=== PATIENT | male | born 1965 | race Caucasian/White ===

== ENCOUNTER 2020-12-29 11:30 | Inpatient (IN) ==
[2020-12-29] MEDS ORDERED: CEFEPIME 2,000 MG/20 ML VIAL IV STA (12:41)
[2020-12-29] MEDS ORDERED: SODIUM CHLORIDE 0.9% 1000ML 1,000 ML IV SCH ×2 (12:45→13:42)
[2020-12-29] MEDS ORDERED: LACTATED RINGER'S 1,000 ML IV SCH (12:45)
--- NOTE | 2020-12-29 12:46 | Emergency Department Note ---
Impression & Plan Pneumonia due to 2019-nCoV, URSZULA (acute kidney injury), Respiratory failure with hypoxia ED Provider Note NAME: KRYSTIN SAMUEL AGE: 55 SEX: M : 1965 ARRIVES VIA: Ambulance INFORMANT: Patient ED PROVIDER(S): Anant Alatorre DO CHIEF COMPLAINT: weak HPI: Patient is a 55-year-old male that presents to the ER for weakness. Symptoms started about 2 weeks ago with diarrhea. And then progressed to a cough congestion shortness of breath. She has had chest pain in the middle of his chest going through to the back which is worse with palpation for the past week. He denies any belly pain nausea or vomiting. He admits to persistent diarrhea. No dysuria urgency or frequency. He tested positive for Covid within the past week. No other exacerbating or remitting factors. Does have a history of diabetes. Had 1 fever yesterday of 101. ROS: See above HPI for pertinent positives & negatives. A total of 10 systems reviewed and were otherwise negative. PAST MEDICAL HISTORY:See Below PAST SURGICAL HISTORY:See Below FAMILY HISTORY:See Below SOCIAL HISTORY:See Below HOME MEDICATIONS:See Below ALLERGIES:See Below VITALS:See Below PHYSICAL EXAMINATION: GENERAL: Sitting up in bed, alert, disheveled, ill-appearing EYE EXAM: normal conjunctiva. OROPHARYNX: no exudate, no erythema, lips, buccal mucosa, and tongue normal and mucous membranes are moist NECK: supple, no nuchal rigidity, no adenopathy, non-tender LUNGS: Diminished bilaterally. Normal chest wall mechanics HEART: no murmurs, S1 normal and S2 normal ABDOMEN: abdomen soft, non-tender, normo-active bowel sounds, no masses, no rebound or guarding. BACK: Back is symmetrical on inspection and there is no deformity, no midline tenderness, no CVA tenderness. SKIN: no rashes and no bruising UPPER EXTREMITIES: upper extremities are grossly normal. LOWER EXTREMITIES: No pitting edema. NEURO EXAM: Normal sensorium, cranial nerves II-XII grossly intact, normal speech, no gross weakness of arms, no gross weakness of legs. MEDICAL DECISION MAKING: Patient is a 55-year-old male who presents ER for above-stated complaint. IV was established blood was obtained. Labs showed no significant leukocytosis or anemia. INR unremarkable. D-dimer slightly elevated at 700. VBG with a pH of 7.28 and CO2 of 65. BMP was fairly unremarkable with the exception of URSZULA. Troponin was normal. Pro-Fred was normal. UA was clean. Covid was positive. Chest x-ray with an interstitial pneumonitis consistent with Covid. Patient was given 3 L IV normal saline. [place] significantly better and blood pressures improved from the 70s to low 100s. Creatinine had significantly worsened from previous of .8 to 2. Unable to perform CT angio for the positive D-dimer due to the URSZULA Triage Nursing notes reviewed. Limited review of prior medical records performed Vital Signs: reviewed and remarkable for Hypotension and hypoxia Differential diagnosis: Infection, dehydration, metabolic abnormality, hypo/hyperglycemia, electrolyte disturbance, anemia, hypoxia, cardiac sources, intracerebral event, toxicologic, neurologic, as well as other pathologies. ER treatment provided: See below Diagnostics interpreted by me: ECG: Sinus rhythm rate of 71 Normal axis No PVCs T wave inversion V1 V2 QTC 425 Cardiac Monitoring: An order was placed for continuous cardiac monitoring. The monitor shows a rate of 78 with sinus rhythm. Laboratory studies: As stated above and show below. Imaging studies: Chest x-ray as discussed above Consultation(s): Discussed with the hospitalist for further evaluation Procedures: none Critical Care: I have personally spent 40 minutes of critical care time in the direct management of this patient. This includes bedside care, interpretation of diagnostic studies, and testing, discussion with consultants, patient, and family members, and other required patient management activities. This 40 minutes is in excess of all separately billable procedures. Past Med/Surg History Medical History (Updated 12/29/20 @ 18:47 by Anant Alatorre DO) Anxiety Bipolar disorder pt unsure of this dx. one physician confirmed and another denied dx. Carpal tunnel syndrome on both sides Degenerative disc disease Depression Diabetes mellitus, type 2 IDDM GERD (gastroesophageal reflux disease) HTN (hypertension) Osteoarthritis Sinusitis Sleep apnea CPAP Surgical History History of cardiac cath 10 YEARS AGO - [facility] - NO STENTS/ANGIOPLASTY History of carpal tunnel repair bilateral hands History of cholecystectomy History of colonoscopy History of esophagogastroduodenoscopy (EGD) History of repair of rotator cuff LEFT History of sinus surgery History of tooth extraction Family History Brother Family history of diabetes mellitus Sister Family history of diabetes mellitus Grandfather (Maternal) Family history of diabetes mellitus Social History Smoking Status: Never smoker Second Hand Exposure: No; Do You Dip or Chew Tobacco: Yes; Tobacco Cessation Education Requested by Patient: No Hx Alcohol Use: Yes Alcohol type: beer Hx Substance Use: No Preferred Language: Japanese Communication Ability: Effective Zoogler Required: No Beliefs That Will Affect Care: None Current Living Situation: Family Current Living Situation Comment: LIVES W/ BROTHER Feels Safe at Home: Yes Assistive Devices: CPAP, Denture - Upper and Denture - Lower Allergies Allergies Allergy/AdvReac Type Severity Reaction Status Date / Time No Known Allergies Allergy Verified 09/11/19 08:27 Home Meds Home Medications Medication Instructions Recorded Confirmed Basaglar KwikPen U-100 Insulin 40 unit SUBCUT BID 08/15/19 12/29/20 aripiprazole [Abilify] 5 mg PO QAM 08/15/19 12/29/20 atorvastatin [Lipitor] 40 mg PO QPM 08/15/19 12/29/20 clonazepam [Klonopin] 0.5 mg PO BID 08/15/19 12/29/20 escitalopram oxalate [Lexapro] 10 mg PO QAM 08/15/19 12/29/20 insulin aspart U-100 [Novolog 1 sliding scale dose SUBCUT 08/15/19 12/29/20 U-100 Insulin aspart] USEASDIRECTD losartan 100 mg PO QAM 08/15/19 12/29/20 metformin 500 mg PO BID 08/15/19 12/29/20 metoprolol succinate 50 mg PO QAM 08/15/19 12/29/20 omeprazole 40 mg PO QAM 08/15/19 12/29/20 temazepam 30 mg PO HS 12/29/20 12/29/20 Results & Data (ED) Vital Signs Vital Signs - 24 hr 12/29/20 11:41 12/29/20 11:43 12/29/20 11:45 Temperature Temperature Source Pulse Rate 70 72 71 Pulse Rate from SpO2 Sensor 70 72 70 Pulse Rhythm Pulse Strength Respiratory Rate 19 17 17 Respiratory Effort / Characteristics Respiratory Depth Respiratory Pattern Blood Pressure 90/49 L 88/47 L 78/48 L Blood Pressure Mean 62 60 58 Blood Pressure Position Pulse Oximetry 96 96 95 Oxygen Delivery Method Oxygen Flow Rate Sepsis Recent Fever Within 48 Hours Sepsis New/Unexplained Change in Mental Status Sepsis Action Taken by Nursing 12/29/20 11:52 12/29/20 12:00 12/29/20 12:15 Temperature 37.1 C Temperature Source Oral Pulse Rate 77 74 68 Pulse Rate from SpO2 Sensor 74 69 Pulse Rhythm Regular Pulse Strength Normal Respiratory Rate 16 18 17 Respiratory Effort / Characteristics Non-Labored Spontaneous Respiratory Depth Normal Respiratory Pattern Regular Blood Pressure 90/49 L 84/53 L 90/49 L Blood Pressure Mean 62 63 62 Blood Pressure Position Sitting Pulse Oximetry 96 95 92 Oxygen Delivery Method Nasal Cannula Oxygen Flow Rate 4 Sepsis Recent Fever Within 48 Hours Yes Sepsis New/Unexplained Change in Mental Status No Sepsis Action Taken by Nursing No Action Required 12/29/20 12:30 12/29/20 12:40 12/29/20 12:41 Temperature Temperature Source Pulse Rate 71 76 Pulse Rate from SpO2 Sensor 71 77 Pulse Rhythm Pulse Strength Respiratory Rate 15 31 H Respiratory Effort / Characteristics Non-Labored Spontaneous Respiratory Depth Respiratory Pattern Blood Pressure 76/48 L 96/53 L Blood Pressure Mean 57 67 Blood Pressure Position Pulse Oximetry 89 L 98 Oxygen Delivery Method Nasal Cannula Oxygen Flow Rate 4 Sepsis Recent Fever Within 48 Hours Sepsis New/Unexplained Change in Mental Status Sepsis Action Taken by Nursing 12/29/20 12:45 12/29/20 13:00 12/29/20 13:15 Temperature Temperature Source Pulse Rate 76 71 72 Pulse Rate from SpO2 Sensor 77 70 71 Pulse Rhythm Pulse Strength Respiratory Rate 14 17 16 Respiratory Effort / Characteristics Non-Labored Spontaneous Respiratory Depth Respiratory Pattern Blood Pressure 117/77 111/56 L 95/57 L Blood Pressure Mean 90 74 69 Blood Pressure Position Pulse Oximetry 97 100 98 Oxygen Delivery Method Nasal Cannula Oxygen Flow Rate Sepsis Recent Fever Within 48 Hours Sepsis New/Unexplained Change in Mental Status Sepsis Action Taken by Nursing 12/29/20 13:30 12/29/20 13:45 12/29/20 13:46 Temperature Temperature Source Pulse Rate 68 76 75 Pulse Rate from SpO2 Sensor 68 76 75 Pulse Rhythm Pulse Strength Respiratory Rate 14 26 H 20 Respiratory Effort / Characteristics Non-Labored Spontaneous Respiratory Depth Respiratory Pattern Blood Pressure 108/59 L 111/59 L Blood Pressure Mean 75 76 Blood Pressure Position Pulse Oximetry 97 100 100 Oxygen Delivery Method Nasal Cannula Oxygen Flow Rate 4 Sepsis Recent Fever Within 48 Hours Sepsis New/Unexplained Change in Mental Status Sepsis Action Taken by Nursing 12/29/20 14:00 12/29/20 14:16 12/29/20 14:30 Temperature Temperature Source Pulse Rate 71 Pulse Rate from SpO2 Sensor 72 69 Pulse Rhythm Pulse Strength Respiratory Rate 16 21 Respiratory Effort / Characteristics Non-Labored Spontaneous Non-Labored Spontaneous Respiratory Depth Respiratory Pattern Blood Pressure 112/62 98/56 L Blood Pressure Mean 78 70 Blood Pressure Position Pulse Oximetry 98 97 Oxygen Delivery Method Oxygen Flow Rate Sepsis Recent Fever Within 48 Hours Sepsis New/Unexplained Change in Mental Status Sepsis Action Taken by Nursing 12/29/20 14:31 12/29/20 14:46 12/29/20 15:00 Temperature Temperature Source Pulse Rate 77 74 Pulse Rate from SpO2 Sensor 75 74 Pulse Rhythm Pulse Strength Respiratory Rate 25 H 16 24 Respiratory Effort / Characteristics Non-Labored Spontaneous Respiratory Depth Respiratory Pattern Blood Pressure 100/53 L 114/65 122/68 Blood Pressure Mean 68 81 86 Blood Pressure Position Pulse Oximetry 100 99 Oxygen Delivery Method Oxygen Flow Rate Sepsis Recent Fever Within 48 Hours Sepsis New/Unexplained Change in Mental Status Sepsis Action Taken by Nursing 12/29/20 15:15 12/29/20 15:30 12/29/20 15:45 Temperature Temperature Source Pulse Rate 74 70 72 Pulse Rate from SpO2 Sensor 74 68 72 Pulse Rhythm Pulse Strength Respiratory Rate 21 19 20 Respiratory Effort / Characteristics Non-Labored Spontaneous Respiratory Depth Respiratory Pattern Blood Pressure 123/77 118/71 110/67 Blood Pressure Mean 92 86 81 Blood Pressure Position Pulse Oximetry 97 93 99 Oxygen Delivery Method Oxygen Flow Rate Sepsis Recent Fever Within 48 Hours Sepsis New/Unexplained Change in Mental Status Sepsis Action Taken by Nursing Laboratory Data Result diagrams: 12/29/20 11:51 12/29/20 17:38 Lab Results 12/29/20 12/29/20 12/29/20 Range/Units 11:51 11:51 11:51 WBC 5.84 (4.8-10.8) K/uL RBC 5.31 (4.7-6.1) M/uL Hgb 13.7 L (14.0-18.0) g/dL Hct 41.9 L (42-52) % MCV 78.9 L (80-100) fL MCH 25.8 (25-34) pg MCHC 32.7 (32-36) g/dL RDW Std Deviation 47.5 H (36.4-46.3) fL RDW Coeff of Rich 16.4 H (11.5-14.5) % Plt Count 128 L (130-400) K/uL MPV 10.1 (7.4-10.4) fL Immature Gran % (Auto) 0.3 % Neut % (Auto) 67.6 % Lymph % (Auto) 22.3 % [place] % (Auto) 9.8 % Eos % (Auto) 0.0 % Baso % (Auto) 0.0 % Neut # (Auto) 3.95 (1.4-6.5) K/uL Lymph # (Auto) 1.30 (1.2-3.4) K/uL [place] # (Auto) 0.57 (0.11-0.59) K/uL Eos # (Auto) 0.00 (0-0.5) K/uL Baso # (Auto) 0.00 (0-0.2) K/uL Immature Gran # (Auto) 0.02 (0.00-0.02) K/uL PT 10.9 (9.0-12.0) Seconds INR 1.1 (0.9-1.1) APTT 27.6 (21.0-31.0) Seconds PTT Ratio 1.0 D-Dimer 770 H* (0-500) ug/L FEU VBG pH (7.36-7.41) VBG pCO2 (38-50) mmHg VBG pO2 mmHg VBG HCO3 mmol/L VBG O2 Saturation % VBG Base Excess mEq/L Barometric Pressure mm/Hg Sodium 134 L (136-145) mmol/L Potassium 4.0 (3.5-5.1) mmol/L Chloride 103 (98-107) mmol/L Carbon Dioxide 25 (21-32) mmol/L Anion Gap 6.0 (3-11) BUN 20 H (7-18) mg/dl Creatinine 2.03 H (0.6-1.4) mg/dl Est Cr Clr Drug Dosing 57.1 ml/min Est GFR ( Amer) 41.0 Est GFR (Non-Af Amer) 35.3 BUN/Creatinine Ratio 10.0 (10-20) Glucose 108 H (70-99) mg/dl POC Glucose (70-99) mg/dl Lactate (0.4-2.0) mmol/L Calcium 8.4 L (8.5-10.1) mg/dl Magnesium 2.0 (1.8-2.4) mg/dl Total Bilirubin 1.2 H (0.2-1) mg/dl AST 42 H (15-37) U/L ALT 41 (12-78) U/L Alkaline Phosphatase 69 (45-117) U/L Troponin I < 0.015 (0-0.045) ng/ml Total Protein 7.4 (6.4-8.2) gm/dl Albumin 3.2 L (3.4-5.0) gm/dl Globulin 4.2 H (2.5-4.0) gm/dl Albumin/Globulin Ratio 0.8 L (0.9-2) Procalcitonin (0-0.5) ng/ml COVID-19 Eval Order SARS-CoV-2 (PCR) (Negative) Influenza Type A (PCR) (Neg) Influenza Type B (PCR) (Neg) RSV (RT-PCR) (Neg) 12/29/20 12/29/20 12/29/20 Range/Units 11:51 11:56 12:45 WBC (4.8-10.8) K/uL RBC (4.7-6.1) M/uL Hgb (14.0-18.0) g/dL Hct (42-52) % MCV (80-100) fL MCH (25-34) pg MCHC (32-36) g/dL RDW Std Deviation (36.4-46.3) fL RDW Coeff of Rich (11.5-14.5) % Plt Count (130-400) K/uL MPV (7.4-10.4) fL Immature Gran % (Auto) % Neut % (Auto) % Lymph % (Auto) % [place] % (Auto) % Eos % (Auto) % Baso % (Auto) % Neut # (Auto) (1.4-6.5) K/uL Lymph # (Auto) (1.2-3.4) K/uL [place] # (Auto) (0.11-0.59) K/uL Eos # (Auto) (0-0.5) K/uL Baso # (Auto) (0-0.2) K/uL Immature Gran # (Auto) (0.00-0.02) K/uL PT (9.0-12.0) Seconds INR (0.9-1.1) APTT (21.0-31.0) Seconds PTT Ratio D-Dimer (0-500) ug/L FEU VBG pH (7.36-7.41) VBG pCO2 (38-50) mmHg VBG pO2 mmHg VBG HCO3 mmol/L VBG O2 Saturation % VBG Base Excess mEq/L Barometric Pressure mm/Hg Sodium (136-145) mmol/L Potassium (3.5-5.1) mmol/L Chloride (98-107) mmol/L Carbon Dioxide (21-32) mmol/L Anion Gap (3-11) BUN (7-18) mg/dl Creatinine (0.6-1.4) mg/dl Est Cr Clr Drug Dosing ml/min Est GFR ( Amer) Est GFR (Non-Af Amer) BUN/Creatinine Ratio (10-20) Glucose (70-99) mg/dl POC Glucose 124 H (70-99) mg/dl Lactate (0.4-2.0) mmol/L Calcium (8.5-10.1) mg/dl Magnesium (1.8-2.4) mg/dl Total Bilirubin (0.2-1) mg/dl AST (15-37) U/L ALT (12-78) U/L Alkaline Phosphatase (45-117) U/L Troponin I (0-0.045) ng/ml Total Protein (6.4-8.2) gm/dl Albumin (3.4-5.0) gm/dl Globulin (2.5-4.0) gm/dl Albumin/Globulin Ratio (0.9-2) Procalcitonin 0.14 (0-0.5) ng/ml COVID-19 Eval Order CovFluRsv at [facility] SARS-CoV-2 (PCR) (Negative) Influenza Type A (PCR) (Neg) Influenza Type B (PCR) (Neg) RSV (RT-PCR) (Neg) 12/29/20 12/29/20 12/29/20 Range/Units 12:45 13:58 13:58 WBC (4.8-10.8) K/uL RBC (4.7-6.1) M/uL Hgb (14.0-18.0) g/dL Hct (42-52) % MCV (80-100) fL MCH (25-34) pg MCHC (32-36) g/dL RDW Std Deviation (36.4-46.3) fL RDW Coeff of Rich (11.5-14.5) % Plt Count (130-400) K/uL MPV (7.4-10.4) fL Immature Gran % (Auto) % Neut % (Auto) % Lymph % (Auto) % [place] % (Auto) % Eos % (Auto) % Baso % (Auto) % Neut # (Auto) (1.4-6.5) K/uL Lymph # (Auto) (1.2-3.4) K/uL [place] # (Auto) (0.11-0.59) K/uL Eos # (Auto) (0-0.5) K/uL Baso # (Auto) (0-0.2) K/uL Immature Gran # (Auto) (0.00-0.02) K/uL PT (9.0-12.0) Seconds INR (0.9-1.1) APTT (21.0-31.0) Seconds PTT Ratio D-Dimer (0-500) ug/L FEU VBG pH 7.25 L (7.36-7.41) VBG pCO2 67 H (38-50) mmHg VBG pO2 23 mmHg VBG HCO3 29 mmol/L VBG O2 Saturation < 60.0 % VBG Base Excess 0.3 mEq/L Barometric Pressure 727.0 mm/Hg Sodium (136-145) mmol/L Potassium (3.5-5.1) mmol/L Chloride (98-107) mmol/L Carbon Dioxide (21-32) mmol/L Anion Gap (3-11) BUN (7-18) mg/dl Creatinine (0.6-1.4) mg/dl Est Cr Clr Drug Dosing ml/min Est GFR ( Amer) Est GFR (Non-Af Amer) BUN/Creatinine Ratio (10-20) Glucose (70-99) mg/dl POC Glucose (70-99) mg/dl Lactate 1.0 (0.4-2.0) mmol/L Calcium (8.5-10.1) mg/dl Magnesium (1.8-2.4) mg/dl Total Bilirubin (0.2-1) mg/dl AST (15-37) U/L ALT (12-78) U/L Alkaline Phosphatase (45-117) U/L Troponin I (0-0.045) ng/ml Total Protein (6.4-8.2) gm/dl Albumin (3.4-5.0) gm/dl Globulin (2.5-4.0) gm/dl Albumin/Globulin Ratio (0.9-2) Procalcitonin (0-0.5) ng/ml COVID-19 Eval Order SARS-CoV-2 (PCR) POSITIVE A* (Negative) Influenza Type A (PCR) Negative (Neg) Influenza Type B (PCR) Negative (Neg) RSV (RT-PCR) Negative (Neg) Administered Medications Enoxaparin Sodium (Enoxaparin 80 Mg/0.8 Ml Syr) 70 mg SQ Q12H LACIE Stop: 01/28/21 17:59 Last Admin: 12/29/20 18:07 Dose: 70 mg Documented by: [id number] Remdesivir 200 mg/ Sodium (Chloride) 250 mls @ 125 mls/hr IV NOW ONE; Protocol Stop: 12/29/20 20:29 Last Admin: 12/29/20 18:07 Dose: 125 mls/hr Documented by: [id number] Insulin Aspart (Insulin Aspart 100 Units/Ml 3 Ml Pen) 0 units SC ACHS LACIE Stop: 01/28/21 17:17 Last Admin: 12/29/20 18:00 Dose: 4 units Documented by: [id number] Cosigned by: [id number] Discontinued Medications Azithromycin (Azithromycin 250 Mg Tab) 500 mg PO NOW ONE Stop: 12/29/20 16:49 Last Admin: 12/29/20 18:06 Dose: 500 mg Documented by: [id number] Dexamethasone Sodium Phosphate (DexamethasonePf 10 Mg/Ml Vial) 10 mg IV NOW ONE Stop: 12/29/20 14:29 Last Admin: 12/29/20 16:04 Dose: 10 mg Documented by: [id number] Sodium Chloride (Nss 1000ml) 1,000 mls @ 999 mls/hr IV .Q1H1M LACIE Stop: 12/29/20 13:42 Last Infusion: 12/29/20 14:32 Dose: 0 mls/hr Documented by: [id number] Admin: 12/29/20 12:56 Dose: 999 mls/hr Documented by: [id number] Sodium Chloride (Nss 1000ml) 1,000 mls @ 999 mls/hr IV .Q1H1M LACIE Stop: 12/29/20 14:41 Last Infusion: 12/29/20 14:31 Dose: 0 mls/hr Documented by: [id number] Admin: 12/29/20 12:56 Dose: 999 mls/hr Documented by: [id number] Lactated Ringer's (Lr) 1,000 mls @ 999 mls/hr IV .Q1H1M LACIE Stop: 12/29/20 13:45 Last Infusion: 12/29/20 15:17 Dose: 0 mls/hr Documented by: [id number] Admin: 12/29/20 14:00 Dose: 999 mls/hr Documented by: [id number] Cefepime HCl (Maxipime) 2,000 mg in 20 mls @ 5 mls/min IV NOW STA; Protocol Stop: 12/29/20 12:44 Last Admin: 12/29/20 14:00 Dose: 5 mls/min Documented by: [id number] Imaging Data Radiologist's Impression: Chest X-Ray 12/29/20 12:41 XR chest 1V portable HISTORY: 55 years-old Male SEPSIS acute sepsis COMPARISON: None TECHNIQUE: Portable AP view of the chest FINDINGS: Cardiac silhouette is enlarged. Pulmonary vascular congestion. Interstitial coarsening. No pneumothorax, large pleural effusion or lobar airspace consolidation. Bones appear grossly intact. IMPRESSION: Cardiomegaly with pulmonary vascular congestion and interstitial o pacities suggestive of pulmonary edema versus interstitial pneumonitis. ACT 112: Negative or not required by law. The above report was generated using voice recognition software. It may contain grammatical, syntax or spelling errors. Electronically signed by: Conor Neal M.D. 12/29/2020 2:08 PM Discharge Plan Visit Data Chief Complaint: Illness ED Provider: Anant Alatorre Discharge Problem: Pneumonia due to 2019-nCoV, URSZULA (acute kidney injury), Respiratory failure with hypoxia Patient Disposition: Admitted As Inpatient Discharge Instructions Interventions: ED Discharge Assessment Last Done: 12/29/20 16:55 Discharge Problem: Respiratory failure with hypoxia Qualifiers: Chronicity: acute Qualified Code(s): J96.01 - Acute respiratory failure with hypoxia
[2020-12-29 12:59] LABS: Hematocrit (blood only) 41.9 % (42-52); Hemoglobin 13.7 g/dL (14.0-18.0); Immature Granulocytes # (auto) 0.02 K/uL (0.00-0.02); Immature Granulocytes % (auto) 0.3 %; Lymphocytes % (auto) 22.3 %; Mean Corpuscular Hemoglobin 25.8 pg (25-34); Mean Corpuscular Hgb Conc 32.7 g/dL (32-36); Mean Corpuscular Volume 78.9 fL (80-100); Mean Platelet Volume 10.1 fL (7.4-10.4); Monocytes # (auto) 0.57 K/uL (0.11-0.59); Monocytes % (auto) 9.8 %; Neutrophils # (auto) 3.95 K/uL (1.4-6.5); Neutrophils % (auto) 67.6 %; Platelet Count 128 K/uL (130-400); RDW Coefficient of Variation 16.4 % (11.5-14.5); RDW Standard Deviation 47.5 fL (36.4-46.3); Red Blood Count 5.31 M/uL (4.7-6.1); White Blood Count 5.84 K/uL (4.8-10.8)
[2020-12-29 13:06] LABS: Alanine Aminotransferase 41 U/L (12-78); Albumin Level 3.2 gm/dl (3.4-5.0); Aspartate Aminotransferase 42 U/L (15-37); Blood Urea Nitrogen 20 mg/dl (7-18); Calcium 8.4 mg/dl (8.5-10.1); Carbon Dioxide 25 mmol/L (21-32); Chloride 103 mmol/L (98-107); Creatinine Clr Calc Pharmacy 57.1 ml/min; Est GFR (Non-African American) 35.3; Glucose 108 mg/dl (70-99); Sodium 134 mmol/L (136-145)
[2020-12-29 13:10] LABS: INR 1.1 (0.9-1.1); Partial Thromboplastin Time 27.6 Seconds (21.0-31.0); Prothrombin Time 10.9 Seconds (9.0-12.0)
[2020-12-29 13:11] LABS: Albumin Globulin Ratio 0.8 (0.9-2); Alkaline Phosphatase 69 U/L (45-117); Bilirubin,Total 1.2 mg/dl (0.2-1); Globulin 4.2 gm/dl (2.5-4.0); Total Protein 7.4 gm/dl (6.4-8.2); Troponin I < 0.015 ng/ml (0-0.045)
[2020-12-29 13:20] LABS: D Dimer 770 ug/L FEU (0-500)
--- NOTE | 2020-12-29 14:09 | XRay Report ---
XR chest 1V portable HISTORY: 55 years-old Male SEPSIS acute sepsis COMPARISON: None TECHNIQUE: Portable AP view of the chest FINDINGS: Cardiac silhouette is enlarged. Pulmonary vascular congestion. Interstitial coarsening. No pneumothor ax, large pleural effusion or lobar airspace consolidation. Bones appear grossly intact. IMPRESSION: Cardiomegaly with pulmonary vascular congestion and interstitial opacities suggestive of pulmonary edema versus interstitial pneumonitis. ACT 112: Negative or not required by law. The above report was generated using voice recognition software. It may contain grammatical, syntax o r spelling errors. Electronically signed by: Conor Neal M.D. 12/29/2020 2:08 PM
[2020-12-29 14:15] LABS: Influenza A virus by PCR Negative (Neg); Influenza B virus by PCR Negative (Neg); RSV by PCR Negative (Neg)
[2020-12-29 14:20] LABS: SARS CoV2 RNA(COVID-19) InHosp POSITIVE (Negative)
[2020-12-29 14:22] LABS: Base Excess VBG 0.3 mEq/L; HCO3 VBG 29 mmol/L; PCO2 VBG 67 mmHg (38-50); PO2 VBG 23 mmHg; pH VBG 7.25 (7.36-7.41)
[2020-12-29 14:26] LABS: Oxygen Saturation VBG < 60.0 %
[2020-12-29] MEDS ORDERED: dexAMETHasone**PF** 10 MG/ML VIAL IV ONE (14:28)
--- NOTE | 2020-12-29 16:01 | History & Physical Report ---
Date of Service December 29, 2020 Assessment & Plan (1) COVID-19: COVID 19 pneumonia- hypoxic requiring supplemental oxygen - Day 6 of illness - Remdisivir as renal function permits- trend liver enzymes - Decadron 6 mg IV x5 days - Self proning and side rotation q2 hours for 20 min minimum to 2 hour max - Lovenox 0.5mg/kg VTE as renal function permits - Check BMP now, follow renal function, avoid further crystalloids as possible - Can orally rehydrate - O2 needs currently decreased to 2LNC- titrate as needed to keep SPO2 >90%, NC/HFNC/NIPPV - Patient does not wish to be intubated - CRP/ESR/Fibrinogen/PCT tomorrow - PCT 0.14- Azithromycin (2) URSZULA (acute kidney injury): Last baseline CARTOGRAPHIC AIDE from 2019 0.82 - FENA 1.3% - Received 3 Liters in EMD- did void - Follow PVR with bladder scan - Negative protein negative blood - Will hold ARB for today- if improves can restart - Will need to closely follow Enoxaparin dosing and Remdisivir (3) Anxiety: ? Bi-polar in history which patient is not sure of - He does note anxiety- had one episode in 2016 here for depression and mental health evaluation - Continue Abilify 5 PO qam, Klonopin 0.5mg PO BID, Lexapro 10 mg PO Qam - Hold Temazepam with renal as well as him feeling lethargic this morning- if improves on recheck consider half dose of his 30 mg. (4) Respiratory acidosis: VBG on admission with Paco2 67; PH 7.25, HCO3 29 - Reassess- - patient is awake and conversant with normalized respiratory rate and effort from arrival (5) Diabetes mellitus, type 2: Glargine Basaglar 40 units subq BID - SSI aspart - HGBa1C in morning (6) HTN (hypertension): Hold ARB as above - Goal <140 (7) Obesity: 42.7 No acute needs (8) Sleep apnea: ZAFAR- on CPAP at home, patient is unsure of settings- believes he is at 10 - titrate to comfort and tolerance (9) Impingement syndrome of right shoulder: Managed with orthopaedics and steroid injection - tylenol for now - can do heat/ice therapy if desired (10) Anemia: For his microcytic anemia, check iron studies-if iron is low, would need upper and lower endoscopies as an outpatient (11) DVT prophylaxis: Lovenox 0.5mg/kg DNR/DNI History of Present Illness Primary Care Provider: Jaren Tan, DO 55 YOM with past medical history of obesity, DM II (on insulin), HTN, HLD, anxiety, ? Bi-polar disorder, ZAFAR, GERD, chronic right shoulder pain. Patient comes to the emergency room today for feeling worse from his COVID 19 infection. He originally tested positive last , after his brother (whom he lives with tested positive last Sunday). Patient original symtpoms was diarrhea and some mild headahce and body aches. This worsened over the weekend and over the past 2 days has gotten worse. He reports having one elevated fever yesterday. He continued to have diarrhea with decrease in appetite over the past 48 hours. He reports that he did not eat much yesterday and his oral intake of water was also decreased. He felt lethargic and weak this morning with increased difficulty in breathing. He was on NRB when he arrived and was titrated down to 2LNC with an SPO2 at 89%, he was increased to 4L NC with SPO2 at 100%. He has mild joint discomfort, and non productive cough. In the ER he received a CXR that showed pulmonary congestion with interstitial opacities, 2liters of 0.9% saline and 1liter of LR; dexamethasone 10mg, and Cefepime 2GM x1. He is noted to have a CARTOGRAPHIC AIDE increase to 2.03 and BUN of 20, urine sample is pending. This would be day 6 of his COVID infection. He will be admitted, continue with Decadron, titration of oxygen, and he would want remdisivir with close following of his renal indices. Allergies Allergy/AdvReac Type Severity Reaction Status Date / Time No Known Allergies Allergy Verified 09/11/19 08:27 Home Medications Medication Instructions Recorded Confirmed Type Ottoniel Lou U-100 Insulin 40 unit SUBCUT BID 08/15/19 12/29/20 History aripiprazole [Abilify] 5 mg PO QAM 08/15/19 12/29/20 History atorvastatin [Lipitor] 40 mg PO QPM 08/15/19 12/29/20 History clonazepam [Klonopin] 0.5 mg PO BID 08/15/19 12/29/20 History escitalopram oxalate [Lexapro] 10 mg PO QAM 08/15/19 12/29/20 History insulin aspart U-100 [Novolog 1 sliding scale dose SUBCUT 08/15/19 12/29/20 History U-100 Insulin aspart] USEASDIRECTD losartan 100 mg PO QAM 08/15/19 12/29/20 History metformin 500 mg PO BID 08/15/19 12/29/20 History metoprolol succinate 50 mg PO QAM 08/15/19 12/29/20 History omeprazole 40 mg PO QAM 08/15/19 12/29/20 History temazepam 30 mg PO HS 12/29/20 12/29/20 History Past Med/Surg History Medical History (Updated 12/29/20 @ 23:16 by Symone Henley MD) Anxiety Bipolar disorder pt unsure of this dx. one physician confirmed and another denied dx. Carpal tunnel syndrome on both sides Degenerative disc disease Depression Diabetes mellitus, type 2 IDDM GERD (gastroesophageal reflux disease) HTN (hypertension) Osteoarthritis Sinusitis Sleep apnea CPAP Surgical History History of cardiac cath 10 YEARS AGO - [facility] - NO STENTS/ANGIOPLASTY History of carpal tunnel repair bilateral hands History of cholecystectomy History of colonoscopy History of esophagogastroduodenoscopy (EGD) History of repair of rotator cuff LEFT History of sinus surgery History of tooth extraction Family History Brother Family history of diabetes mellitus Sister Family history of diabetes mellitus Grandfather (Maternal) Family history of diabetes mellitus Social History Smoking Status: Never smoker Second Hand Exposure: No; Do You Dip or Chew Tobacco: Yes; Tobacco Cessation Education Requested by Patient: No Hx Alcohol Use: Yes Alcohol type: beer Hx Substance Use: No Preferred Language: Pashto Communication Ability: Effective Nurse Examiner Required: No Beliefs That Will Affect Care: None Current Living Situation: Family Current Living Situation Comment: LIVES W/ BROTHER Feels Safe at Home: Yes Assistive Devices: Oxygen - Continuous Review of Systems Review of Systems: REVIEW OF SYSTEMS: Constitutional: (+) fever, sweats or chills Eyes: No diplopia, no worsening or blurred vision ENT: normal hearing, no trouble swallowing Respiratory: (+) cough, dyspnea at rest or on exertion, NO sputum Cardiovascular: No chest pain, tightness or palpitations Abdomen: (+) diarrhea, No pain, nausea, vomiting, constipation Musculoskeletal: (+) joint pain, No calf pain, swelling Neurologic: No weakness, numbness/tingling, or balance problems Psychiatric: (+) anxiety, no depression, unsure of bipolar Skin: No rash or itch Physical Exam Physical Exam: PHYSICAL EXAM: General: awake, alert, no apparent distress Head: Normocephalic, atraumatic ENT: PERRL, EOMI, no pharyngeal exudate, mucous membranes dry Neuro: AAO x 3, speech clear and appropriate, strength intact bilaterally 5/5, sensation intact and equal all extremities and dermatomes, no pronator drift Chest: equal rise and fall of the chest, no accessory muscle use, no heaves or thrills, scattered crackles with expiratory wheeze, on 4LNC weaned down to 2LNC, Cardiac: Regular rate and rhythm, telemetry reviewed, skin warm dry, cap refill <3 seconds, peripheral pulses +2 no JVD, no murmur, no edema GI: NABS x 4 quadrants, soft, nontender to palpation, no rebound, guarding or tenderness, obese : void pending, no pain, no CVA tenderness, Extremities: Normal inspection, no peripheral edema or erythema, calfs nontender to palpation Psych: Normal mood and affect Skin: no rash or erythema Results & Data Results & Data ([facility]) Vital Signs (Past 12 Hours) Vital Signs Temp Pulse Resp BP Pulse Ox 12/29/20 14:46 16 114/65 100 12/29/20 14:31 77 25 H 100/53 L 12/29/20 14:16 21 98/56 L 97 12/29/20 14:00 71 16 112/62 98 12/29/20 13:46 75 20 100 12/29/20 13:45 76 26 H 111/59 L 100 12/29/20 13:30 68 14 108/59 L 97 12/29/20 13:15 72 16 95/57 L 98 12/29/20 13:00 71 17 111/56 L 100 12/29/20 12:45 76 14 117/77 97 12/29/20 12:40 76 31 H 96/53 L 98 12/29/20 12:30 71 15 76/48 L 89 L 12/29/20 12:15 68 17 90/49 L 92 12/29/20 12:00 74 18 84/53 L 95 12/29/20 11:52 37.1 C 77 16 90/49 L 96 12/29/20 11:45 71 17 78/48 L 95 12/29/20 11:43 72 17 88/47 L 96 12/29/20 11:41 70 19 90/49 L 96 Laboratory Results Abnormal lab results 12/29/20 12/29/20 12/29/20 Range/Units 11:51 11:51 11:51 Hgb 13.7 L (14.0-18.0) g/dL Hct 41.9 L (42-52) % MCV 78.9 L (80-100) fL RDW Std Deviation 47.5 H (36.4-46.3) fL RDW Coeff of Rich 16.4 H (11.5-14.5) % Plt Count 128 L (130-400) K/uL D-Dimer 770 H* (0-500) ug/L FEU VBG pH (7.36-7.41) VBG pCO2 (38-50) mmHg Sodium 134 L (136-145) mmol/L BUN 20 H (7-18) mg/dl Creatinine 2.03 H (0.6-1.4) mg/dl Glucose 108 H (70-99) mg/dl POC Glucose (70-99) mg/dl Calcium 8.4 L (8.5-10.1) mg/dl Total Bilirubin 1.2 H (0.2-1) mg/dl AST 42 H (15-37) U/L Albumin 3.2 L (3.4-5.0) gm/dl Globulin 4.2 H (2.5-4.0) gm/dl Albumin/Globulin Ratio 0.8 L (0.9-2) SARS-CoV-2 (PCR) (Negative) 12/29/20 12/29/20 12/29/20 Range/Units 11:56 12:45 13:58 Hgb (14.0-18.0) g/dL Hct (42-52) % MCV (80-100) fL RDW Std Deviation (36.4-46.3) fL RDW Coeff of Rich (11.5-14.5) % Plt Count (130-400) K/uL D-Dimer (0-500) ug/L FEU VBG pH 7.25 L (7.36-7.41) VBG pCO2 67 H (38-50) mmHg Sodium (136-145) mmol/L BUN (7-18) mg/dl Creatinine (0.6-1.4) mg/dl Glucose (70-99) mg/dl POC Glucose 124 H (70-99) mg/dl Calcium (8.5-10.1) mg/dl Total Bilirubin (0.2-1) mg/dl AST (15-37) U/L Albumin (3.4-5.0) gm/dl Globulin (2.5-4.0) gm/dl Albumin/Globulin Ratio (0.9-2) SARS-CoV-2 (PCR) POSITIVE A* (Negative) Diagnostic Findings Chest X-Ray 12/29/20 12:41 XR chest 1V portable HISTORY: 55 years-old Male SEPSIS acute sepsis COMPARISON: None TECHNIQUE: Portable AP view of the chest FINDINGS: Cardiac silhouette is enlarged. Pulmonary vascular congestion. Interstitial coarsening. No pneumothorax, large pleural effusion or lobar airspace consolidation. Bones appear grossly intact. IMPRESSION: Cardiomegaly with pulmonary vascular congestion and interstitial opacities suggestive of pulmonary edema versus interstitial pneumonitis. ACT 112: Negative or not required by law. The above report was generated using voice recognition software. It may contain grammatical, syntax or spelling errors. Electronically signed by: Conor Neal M.D. 12/29/2020 2:08 PM Medications Administered Discontinued Medications Sodium Chloride (Nss 1000ml) 1,000 mls @ 999 mls/hr IV .Q1H1M LACIE Stop: 12/29/20 13:42 Last Infusion: 12/29/20 14:32 Dose: 0 mls/hr Documented by: [id number] Admin: 12/29/20 12:56 Dose: 999 mls/hr Documented by: [id number] Sodium Chloride (Nss 1000ml) 1,000 mls @ 999 mls/hr IV .Q1H1M LACIE Stop: 12/29/20 14:41 Last Infusion: 12/29/20 14:31 Dose: 0 mls/hr Documented by: [id number] Admin: 12/29/20 12:56 Dose: 999 mls/hr Documented by: [id number] Lactated Ringer's (Lr) 1,000 mls @ 999 mls/hr IV .Q1H1M LACIE Stop: 12/29/20 13:45 Last Infusion: 12/29/20 15:17 Dose: 0 mls/hr Documented by: [id number] Admin: 12/29/20 14:00 Dose: 999 mls/hr Documented by: [id number] Cefepime HCl (Maxipime) 2,000 mg in 20 mls @ 5 mls/min IV NOW STA; Protocol Stop: 12/29/20 12:44 Last Admin: 12/29/20 14:00 Dose: 5 mls/min Documented by: [id number] Home Medications Basaglar KwikPen U-100 Insulin 40 unit SUBCUT BID 08/15/19 [History Confirmed 12/29/20] aripiprazole [Abilify] 5 mg PO QAM 08/15/19 [History Confirmed 12/29/20] atorvastatin [Lipitor] 40 mg PO QPM 08/15/19 [History Confirmed 12/29/20] clonazepam [Klonopin] 0.5 mg PO BID 08/15/19 [History Confirmed 12/29/20] escitalopram oxalate [Lexapro] 10 mg PO QAM 08/15/19 [History Confirmed 12/29/20] insulin aspart U-100 [Novolog U-100 Insulin aspart] 1 sliding scale dose SUBCUT USEASDIRECTD 08/15/19 [History Confirmed 12/29/20] losartan 100 mg PO QAM 08/15/19 [History Confirmed 12/29/20] metformin 500 mg PO BID 08/15/19 [History Confirmed 12/29/20] metoprolol succinate 50 mg PO QAM 08/15/19 [History Confirmed 12/29/20] omeprazole 40 mg PO QAM 08/15/19 [History Confirmed 12/29/20] temazepam 30 mg PO HS 12/29/20 [History Confirmed 12/29/20] ECG Additional Comments: Normal sinus rhythm Normal ECG No previous ECGs available Code Status & VTE Plan Code Status CODE: DNR/DNI VTE: SCD's, Lovenox 0.5mg/kg, VTE Prophylaxis Plan VTE Prophylaxis will be ordered: Yes Supervising Physician Co-Signing Physician Notes [employer] SOCIAL WORKER Supervision note: I have personally seen and examined the patient and discussed and verified the shaw points of the history and physical along with the plan with ANABEL Zhou with the following exceptions and/or additions: This patient is a 55-year-old male with a history of 6 days of diarrhea, malaise, then development of fevers and shortness of breath, requiring oxygen upon arrival and testing positive for Covid-19. Also found to be dehydrated with mild acute kidney injury. History and ROS reviewed as above Vitals reviewed Gen: AAOx3, NAD, morbidly obese HEENT: Anicteric sclerae, EOMI CV: RRR no mgr nl S1S2 Pulm: Some mild crackles at the bases, otherwise clear but diminished throughout due to body habitus Abd: +BS soft NT ND no masses or hernias Ext: No edema or calf tenderness Skin: No rashes, warm/dry Neuro: Full strength throughout Laboratory values reviewed Chest x-ray image personally reviewed by me 55-year-old male with a history of obesity, HTN, DM 2, anxiety/depression, ZAFAR on CPAP, here with COVID-19 pneumonia, acute respiratory failure with hypoxia, and acute kidney injury. Already hydrated with IV fluids in ER, recheck on BMP shows renal function is normalized -Agree with treatment of Covid with IV Decadron, Remdesivir, and adding on azithromycin for bacterial coverage given mildly elevated procalcitonin Supplemental O2 as needed keep pulse ox greater than 92% wean off as tolerated For his microcytic anemia, check iron studies-if iron is low, would need upper and lower endoscopies as an outpatient PG Care Time/CCT Total # of Minutes Spent Total Time Spent with Patient: Total time spent is greater than 50% in coordination of care (as documented) at patient's floor/unit and/or counseling patient: Coding Level of Care Code 86411 Initial Inpt Care Lvl 3 Diagnoses COVID-19 U07.1 URSZULA (acute kidney injury) N17.9 Anxiety F41.9 Respiratory acidosis E87.2 Diabetes mellitus, type 2 E11.9; Z79.4 Diabetes mellitus complication status: without complication Diabetes mellitus termite control service representative insulin use: with intermediate use HTN (hypertension) I10 Hypertension type: essential hypertension Obesity E66.01; Z68.41 Body mass index: BMI 40.0-44.9 Obesity classification: adult class 3 (BMI >= 40) Obesity type: due to excess calories Serious obesity comorbidity presence: unspecified whether serious comorbidity present Sleep apnea G47.30 Sleep apnea type: unspecified type Impingement syndrome of right shoulder M75.41 Anemia D64.9 DVT prophylaxis Z29.9 (1) Sleep apnea Sleep apnea type: unspecified type Qualified Code(s): G47.30 - Sleep apnea, unspecified (2) Diabetes mellitus, type 2 Diabetes mellitus complication status: without complication Diabetes mellitus termite control service representative insulin use: with termite control service representative use Qualified Code(s): E11.9 - Type 2 diabetes mellitus without complications; Z79.4 - termite control service representative (current) use of insulin (3) HTN (hypertension) Hypertension type: essential hypertension Qualified Code(s): I10 - Essential (primary) hypertension (4) Obesity Body mass index: BMI 40.0-44.9 Obesity classification: adult class 3 (BMI >= 40) Obesity type: due to excess calories Serious obesity comorbidity presence: unspecified whether serious comorbidity present Qualified Code(s): E66.01 - Morbid (severe) obesity due to excess calories; Z68.41 - Body mass index [BMI]40.0-44.9, adult
[2020-12-29 16:05] LABS: Appearance Urine Clear (Clear); Bilirubin Urine Negative (Negative); Blood Urine Negative (Negative); Color Urine Yellow; Glucose Urine UA Negative (Negative); Ketones Urine Negative (Negative); Leukocyte Esterase Urine Negative (Negative); Nitrite Urine Negative (Negative); Protein Urine Negative (Negative); Specific Gravity Urine 1.009 (1.000-1.030); Urobilinogen Urine Negative (Negative); pH Urine 6.5 (4.5-7.5)
[2020-12-29 16:23] LABS: Creatinine Urine Random 53.9 mg/dl
--- NOTE | 2020-12-29 16:41 | Electrocardiogram Report ---
Test Reason : Blood Pressure : / mmHG Vent. Rate : 071 BPM Atrial Rate : 071 BPM P-R Int : 170 ms QRS Dur : 096 ms QT Int : 392 ms P-R-T Axes : 053 076 061 degrees QTc Int : 425 ms Normal sinus rhythm Normal ECG No previous ECGs available Confirmed by Raymond Fonseca ([id number]) on 12/29/2020 4:40:31 PM Referred By: Confirmed By:Raymond Fonseca
[2020-12-29] MEDS ORDERED: AZITHROMYCIN 250 MG TAB PO ONE (16:48)
[2020-12-29] MEDS ORDERED: GLUCAGON FOR INJ 1 MG VIAL SQ PRN (17:18)
[2020-12-29] MEDS ORDERED: CARBOHYDRATES FOR HYPOGLYCEMIA PO PRN (17:18)
[2020-12-29] MEDS ORDERED: GLUCOSE 40% GEL 15 GM TUBE PO PRN (17:18)
[2020-12-29] MEDS ORDERED: DEXTROSE 50% 50 ML SYRINGE IV PRN (17:18)
[2020-12-29] MEDS ORDERED: POLYETHYLENE (MIRALAX) 17 GM PACK PO PRN (17:18)
[2020-12-29] MEDS ORDERED: GLUCOSE 10 TABS/TUBE PO PRN (17:18)
[2020-12-29] MEDS ORDERED: ACETAMINOPHEN 325 MG TAB PO PRN (17:18)
[2020-12-29] MEDS: INSULIN ASPART 100 UNITS/ML 3 ML PEN SC SCH ×2 (18:00→20:51)
[2020-12-29 18:02] LABS: Base Excess VBG 1.6 mEq/L; HCO3 VBG 30 mmol/L; Oxygen Saturation VBG < 60.0 %; PCO2 VBG 65 mmHg (38-50); PO2 VBG 24 mmHg; pH VBG 7.28 (7.36-7.41)
[2020-12-29] MEDS: ENOXAPARIN 80 MG/0.8 ML SYR SQ SCH (18:07)
[2020-12-29 18:10] LABS: Fibrinogen 484 mg/dl (184-400)
[2020-12-29 18:12] LABS: BUN Creatinine Ratio 12.2 (10-20); C Reactive Protein 1.82 mg/dl (0-0.29); Creatinine Clr Calc Pharmacy 86.6 ml/min; Est GFR (African American) 65.3; Est GFR (Non-African American) 56.4; Potassium 4.4 mmol/L (3.5-5.1)
[2020-12-29] MEDS ORDERED: REMDESIVIR 200 MG in SODIUM CHLORIDE 0.9% 210 ML IV ONE (18:30)
[2020-12-29] MEDS: ALBUTEROL HFA 8 GM INHALER INH SCH (19:26)
[2020-12-29] MEDS: SODIUM CHLORIDE 0.9% 10ML FLUSH IV SCH ×2 (20:18→20:53)
[2020-12-29] MEDS: clonazePAM 0.5 MG TAB PO SCH (20:51)
[2020-12-29] MEDS: ATORVASTATIN 40 MG TAB PO SCH (20:51)
[2020-12-29] MEDS: INSULIN GLARGINE SOLOSTAR 100 UNITS/ML 3 ML PEN SQ SCH (20:58)
[2020-12-29] MEDS: TEMAZEPAM 15 MG CAPSULE PO PRN (22:12)
[2020-12-30] MEDS: ALBUTEROL HFA 8 GM INHALER INH SCH ×2 (01:27→07:19)
[2020-12-30] MEDS: ENOXAPARIN 80 MG/0.8 ML SYR SQ SCH ×2 (06:14→17:25)
[2020-12-30 06:35] LABS: Basophils # (auto) 0.01 K/uL (0-0.2); Basophils % (auto) 0.3 %; Hemoglobin 12.2 g/dL (14.0-18.0); Immature Granulocytes # (auto) 0.01 K/uL (0.00-0.02); Immature Granulocytes % (auto) 0.3 %; Lymphocytes # (auto) 0.93 K/uL (1.2-3.4); Lymphocytes % (auto) 24.3 %; Mean Corpuscular Hemoglobin 25.1 pg (25-34); Mean Corpuscular Hgb Conc 31.3 g/dL (32-36); Mean Corpuscular Volume 80.2 fL (80-100); Mean Platelet Volume 10.3 fL (7.4-10.4); Monocytes # (auto) 0.27 K/uL (0.11-0.59); Monocytes % (auto) 7.1 %; Nucleated RBC # (auto) 0.02 K/uL (0-0); Nucleated RBC % (auto) 0.7 %; Platelet Count 135 K/uL (130-400); RDW Coefficient of Variation 16.3 % (11.5-14.5); Red Blood Count 4.86 M/uL (4.7-6.1); White Blood Count 3.82 K/uL (4.8-10.8)
[2020-12-30 07:08] LABS: Estimated Average Glucose 157 mg/dl; Hemoglobin A1C 7.1 % (4.5-5.6)
[2020-12-30 07:34] LABS: Alanine Aminotransferase 44 U/L (12-78); Aspartate Aminotransferase 40 U/L (15-37); BUN Creatinine Ratio 14.3 (10-20); Blood Urea Nitrogen 15 mg/dl (7-18); C Reactive Protein 1.85 mg/dl (0-0.29); Carbon Dioxide 29 mmol/L (21-32); Chloride 107 mmol/L (98-107); Creatinine Clr Calc Pharmacy 112.7 ml/min; Est GFR (African American) 89.9; Est GFR (Non-African American) 77.5; Ferritin 628.8 ng/ml (8-388); Glucose 136 mg/dl (70-99); Magnesium 2.2 mg/dl (1.8-2.4); Potassium 4.6 mmol/L (3.5-5.1); Sodium 137 mmol/L (136-145); Total Iron Binding Capacity 271 mcg/dl (250-450); Transferrin 215 mg/dl (200-360)
[2020-12-30] MEDS ORDERED: ALBUTEROL HFA 8 GM INHALER INH PRN (07:35)
[2020-12-30] MEDS: INSULIN ASPART 100 UNITS/ML 3 ML PEN SC SCH ×4 (08:00→19:57)
[2020-12-30] MEDS: dexAMETHasone 6 MG in SYRINGE 0 ML IV SCH (08:29)
[2020-12-30] MEDS: ESCITALOPRAM OXALATE 10 MG TAB PO SCH (08:30)
[2020-12-30] MEDS: ARIPiprazole 5 MG TAB PO SCH (08:30)
[2020-12-30] MEDS: PANTOprazole 40 MG TAB PO SCH (08:30)
[2020-12-30] MEDS: METOPROLOL SUCC 50MG EXT REL TAB PO SCH (08:30)
[2020-12-30] MEDS: clonazePAM 0.5 MG TAB PO SCH ×2 (08:39→20:02)
[2020-12-30] MEDS ORDERED: AZITHROMYCIN 250 MG TAB PO SCH (09:00)
[2020-12-30] MEDS: INSULIN GLARGINE SOLOSTAR 100 UNITS/ML 3 ML PEN SQ SCH ×2 (09:06→20:19)
--- NOTE | 2020-12-30 12:31 | Hospitalist Progress Note ---
Date of Service December 30, 2020 Assessment & Plan (1) COVID-19: COVID 19 pneumonia- hypoxic requiring supplemental oxygen. First symptoms on December 23 (/Sunday). - Continue remdesivir while inpatient (End date: 01/02/2021) - Continue dexamethasone 6 mg IV or PO x 10 days (End date: 01/07/2021) - Encouraged self proning and side rotation q2 hours for 20 min minimum to 2 hour max - Supplemental O2 support -> Presently on 2L NC. SpO2 was 85 - 88% on room air at rest. 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 Got 3L IV fluids in the ED. - Hold ARB for now - Cr down to 1.0 on 12/30. (3) Diabetes mellitus, type 2: A1c was 7.1% this admission. - Continue home glargine 40 units SQ BID - Sliding scale insulin -> Blood sugars generally fairly well controlled today. Consider glycemic pharmacist if he starts to consistently go over 180. (4) HTN (hypertension): BP today is only 100/60, though he is asymptomatic. - Hold ARB as above (5) Anemia: Microcytic anemia, due to iron deficiency with transferrin sat of 16% (normal range 20 - 50%). - Will defer iron infusion during acute infection. - Encourage good oral iron consumption. Outpatient follow-up with GI for iron deficiency work-up. (6) Anxiety: ? Bi-polar in history which patient is not sure of. He does note anxiety- had one episode in 2016 here for depression and mental health evaluation. - Continue Abilify 5 PO qam, Klonopin 0.5mg PO BID, Lexapro 10 mg PO Qam - Hold temazepam for now; he is still getting clonazepam, so benzo withdrawal would be unlikely. (7) Sleep apnea: ZAFAR- on CPAP at home, patient is unsure of settings - believes he is at 10 cmH20. - Titrate to comfort and tolerance (8) Impingement syndrome of right shoulder: Managed with orthopaedics and steroid injection. - Tylenol PRN - Can do heat/ice therapy if desired (9) Obesity: BMI of 42.7. - No acute needs (10) DVT prophylaxis: Lovenox 0.5mg/kg SQ Q12h DNR/DNI -> Patient confirmed he would not want intubation to admitting provider. Admission and Anticipated Discharge Date Admission Date: December 29, 2020 Subjective Doing well today. His shortness of breath is slightly less severe than yesterday. Still with a cough and requiring O2. Reports no fevers/chills, chest pain, abdominal pain, nausea, or vomiting. Physical Exam Constitutional: WD/WN, vitals as above Eyes: EOM intact bilaterally; no conjunctival abnormality ENMT: external ear and nose normal, oropharynx normal Neck: trachea midline, no thyromegaly normal visual inspection Respiratory: normal respiratory effort; no respiratory distress Auscultation: + wheezes (Faint end-expiratory) Cardiovascular: RRR, no murmur, no edema Gastrointestinal (Abdomen): Inspection/Auscultation: abdomen normal to inspection; abdomen not distended Musculoskeletal: no cyanosis or clubbing, extremities motor strength 5/5 Skin: no rashes, warm and dry Neurologic: moves all extremities and awake Psychiatric: Orientation: alert, oriented to person and cooperative Results & Data Results & Data ([facility]) Vital Signs (Past 12 Hours) Vital Signs Temp Pulse Pulse Resp BP Pulse Ox 12/30/20 11:41 36.5 C 63 20 99/59 L 95 12/30/20 08:00 87 12/30/20 07:24 36.5 C 70 24 107/64 95 12/30/20 07:21 63 16 99 12/30/20 03:59 36.6 C 61 18 124/74 98 12/30/20 01:28 71 18 92 PG Care Time/CCT Total # of Minutes Spent Total Time Spent with Patient: Total time spent is greater than 50% in coordination of care (as documented) at patient's floor/unit and/or counseling patient: Coding Level of Care Code 36960 Subseq Hosp Care Lvl 3 Diagnoses COVID-19 U07.1 URSZULA (acute kidney injury) N17.9 Diabetes mellitus, type 2 E11.9; Z79.4 Diabetes mellitus complication status: without complication Diabetes mellitus parts counterman insulin use: with parts counterman use HTN (hypertension) I10 Hypertension type: essential hypertension Anemia D64.9 Anxiety F41.9 Sleep apnea G47.30 Sleep apnea type: unspecified type Impingement syndrome of right shoulder M75.41 Obesity E66.01; Z68.41 Body mass index: BMI 40.0-44.9 Obesity classification: adult class 3 (BMI >= 40) Obesity type: due to excess calories Serious obesity comorbidity presence: unspecified whether serious comorbidity present DVT prophylaxis Z29.9 (1) Sleep apnea Sleep apnea type: unspecified type Qualified Code(s): G47.30 - Sleep apnea, unspecified (2) Diabetes mellitus, type 2 Diabetes mellitus complication status: without complication Diabetes mellitus parts counterman insulin use: with parts counterman use Qualified Code(s): E11.9 - Type 2 diabetes mellitus without complications; Z79.4 - alf (current) use of insulin (3) HTN (hypertension) Hypertension type: essential hypertension Qualified Code(s): I10 - Essential (primary) hypertension (4) Obesity Body mass index: BMI 40.0-44.9 Obesity classification: adult class 3 (BMI >= 40) Obesity type: due to excess calories Serious obesity comorbidity presence: unspecified whether serious comorbidity present Qualified Code(s): E66.01 - Morbid (severe) obesity due to excess calories; Z68.41 - Body mass index [BMI]40.0-44.9, adult
[2020-12-30] MEDS: SODIUM CHLORIDE 0.9% 10ML FLUSH IV SCH (19:55)
[2020-12-30] MEDS: ATORVASTATIN 40 MG TAB PO SCH (19:55)
[2020-12-30] MEDS ORDERED: REMDESIVIR 100 MG in SODIUM CHLORIDE 0.9% 230 ML IV SCH (20:00)
[2020-12-30] MEDS: TEMAZEPAM 15 MG CAPSULE PO PRN (20:02)
[2020-12-31] MEDS: ENOXAPARIN 80 MG/0.8 ML SYR SQ SCH ×2 (06:02→17:32)
[2020-12-31 06:44] LABS: Hemoglobin 11.8 g/dL (14.0-18.0); Immature Granulocytes # (auto) 0.03 K/uL (0.00-0.02); Immature Granulocytes % (auto) 0.5 %; Lymphocytes # (auto) 1.56 K/uL (1.2-3.4); Lymphocytes % (auto) 25.2 %; Mean Corpuscular Hemoglobin 25.1 pg (25-34); Mean Corpuscular Hgb Conc 31.1 g/dL (32-36); Mean Corpuscular Volume 80.7 fL (80-100); Mean Platelet Volume 10.2 fL (7.4-10.4); Monocytes # (auto) 0.42 K/uL (0.11-0.59); Monocytes % (auto) 6.8 %; Neutrophils # (auto) 4.17 K/uL (1.4-6.5); Neutrophils % (auto) 67.5 %; Platelet Count 137 K/uL (130-400); RDW Coefficient of Variation 16.2 % (11.5-14.5); RDW Standard Deviation 48.1 fL (36.4-46.3); Red Blood Count 4.71 M/uL (4.7-6.1); White Blood Count 6.18 K/uL (4.8-10.8)
[2020-12-31 07:17] LABS: BUN Creatinine Ratio 16.3 (10-20); C Reactive Protein 0.83 mg/dl (0-0.29); Calcium 8.6 mg/dl (8.5-10.1); Creatinine Clr Calc Pharmacy 104.2 ml/min; Est GFR (African American) 82.3; Magnesium 2.1 mg/dl (1.8-2.4); Potassium 4.5 mmol/L (3.5-5.1)
[2020-12-31] MEDS: ARIPiprazole 5 MG TAB PO SCH (08:32)
[2020-12-31] MEDS: dexAMETHasone 6 MG in SYRINGE 0 ML IV SCH (08:34)
[2020-12-31] MEDS: ESCITALOPRAM OXALATE 10 MG TAB PO SCH (08:35)
--- NOTE | 2020-12-31 08:35 | Hospitalist Progress Note ---
Date of Service December 31, 2020 Assessment & Plan (1) COVID-19: COVID 19 pneumonia- acute hypoxic respiratory failure requiring supplemental oxygen. First symptoms on December 23 (/Sunday). - remdesivir while inpatient (End date: 01/02/2021) - dexamethasone 6 mg IV - Encouraged self proning and side rotation q2 hours for 20 min minimum to 2 hour max - Supplemental O2 support -> Presently on 2L NC. SpO2 was 85 - 88% on room air at rest. 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 Got 3L IV fluids in the ED. - Holding ARB for now - Cr improved (3) Diabetes mellitus, type 2: A1c was 7.1% this admission. - Continue home glargine 40 units SQ BID - Sliding scale insulin -> Blood sugars generally fairly well controlled today. Consider glycemic pharmacist if he starts to consistently go over 180. (4) HTN (hypertension): remains on metoprolol - Hold ARB as above (5) Anemia: Microcytic anemia, due to iron deficiency with transferrin sat of 16% (normal range 20 - 50%). - Will defer iron infusion during acute infection. - Encourage good oral iron consumption. Outpatient follow-up with GI for iron deficiency work-up. (6) Anxiety: ? Bi-polar in history which patient is not sure of. He does note anxiety- had one episode in 2016 here for depression and mental health evaluation. - Continue Abilify 5 PO qam, Klonopin 0.5mg PO BID, Lexapro 10 mg PO Qam - Hold temazepam for now; he is still getting clonazepam, so benzo withdrawal would be unlikely. (7) Sleep apnea: ZAFAR- on CPAP at home, patient is unsure of settings - believes he is at 10 cmH20. - Titrate to comfort and tolerance (8) Impingement syndrome of right shoulder: Managed with orthopaedics and steroid injection. - Tylenol PRN - Can do heat/ice therapy if desired (9) Obesity: BMI of 42.7. - No acute needs (10) DVT prophylaxis: Lovenox 0.5mg/kg SQ Q12h DNR/DNI -> Patient confirmed he would not want intubation to admitting provider. Admission and Anticipated Discharge Date Admission Date: December 29, 2020 Results & Data Results & Data ([facility]) Vital Signs (Past 12 Hours) Vital Signs Temp Pulse Resp BP Pulse Ox 12/31/20 07:57 97.5 F L 64 18 132/78 96 12/31/20 03:45 97.9 F 60 18 122/71 98 12/30/20 23:41 97.9 F 61 18 111/62 96 PG Care Time/CCT Total # of Minutes Spent Total Time Spent with Patient: Total time spent is greater than 50% in coordination of care (as documented) at patient's floor/unit and/or counseling patient: Coding Diagnoses COVID-19 U07.1 URSZULA (acute kidney injury) N17.9 Diabetes mellitus, type 2 E11.9; Z79.4 Diabetes mellitus prison insulin 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: 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 Diabetes mellitus complication status: without complication HTN (hypertension) I10 Hypertension type: essential hypertension Anemia D64.9 Anxiety F41.9 Sleep apnea G47.30 Sleep apnea type: unspecified type Impingement syndrome of right shoulder M75.41 Obesity E66.01; Z68.41 Obesity type: due to excess calories Obesity classification: adult class 3 (BMI >= 40) Serious obesity comorbidity presence: unspecified whether serious comorbidity present Body mass index: BMI 40.0-44.9 DVT prophylaxis Z29.9 (1) Diabetes mellitus, type 2 Diabetes mellitus prison insulin use: with prison use Diabetes mellitus complication status: without complication Qualified Code(s): E11.9 - Type 2 diabetes mellitus without complications; 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.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
[2020-12-31] MEDS: PANTOprazole 40 MG TAB PO SCH (08:36)
[2020-12-31] MEDS: METOPROLOL SUCC 50MG EXT REL TAB PO SCH (08:36)
[2020-12-31] MEDS: clonazePAM 0.5 MG TAB PO SCH (08:40)
[2020-12-31] MEDS: INSULIN ASPART 100 UNITS/ML 3 ML PEN SC SCH ×3 (08:45→17:32)
[2020-12-31] MEDS: INSULIN GLARGINE SOLOSTAR 100 UNITS/ML 3 ML PEN SQ SCH (08:45)
--- NOTE | 2020-12-31 17:00 | Discharge Summary ---
Date of Service December 31, 2020 Admission HPI Per Admitting Provider 55 YOM with past medical history of obesity, DM II (on insulin), HTN, HLD, anxiety, ? Bi-polar disorder, ZAFAR, GERD, chronic right shoulder pain. Patient comes to the emergency room today for feeling worse from his COVID 19 infection. He originally tested positive last , after his brother (whom he lives with tested positive last Sunday). Patient original symtpoms was diarrhea and some mild headahce and body aches. This worsened over the weekend and over the past 2 days has gotten worse. He reports having one elevated fever yesterday. He continued to have diarrhea with decrease in appetite over the past 48 hours. He reports that he did not eat much yesterday and his oral intake of water was also decreased. He felt lethargic and weak this morning with increased difficulty in breathing. He was on NRB when he arrived and was titrated down to 2LNC with an SPO2 at 89%, he was increased to 4L NC with SPO2 at 100%. He has mild joint discomfort, and non productive cough. In the ER he received a C XR that showed pulmonary congestion with interstitial opacities, 2liters of 0.9% saline and 1liter of LR; dexamethasone 10mg, and Cefepime 2GM x1. 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 This would be day 6 of his COVID infection. He will be admitted, continue with Decadron, titration of oxygen, and he would want remdisivir with close following of his renal indices. Principal Diagnosis Acute respiratory failure secondary Covid pneumonia Acute kidney injury morbid obesity Discharge Exam The patient appeared moderately ill Vital signs as documented. Lungs are coarse but good air movement bilaterally no respiratory distress Cardiac exam, Rhythm is regular.. No murmurs, rubs or gallops. Abdominal exam reveals normal bowel sounds, soft non tender, no masses Extremities are nonedematous and both pedal pulses are normal. Neurologic exam is alert and oriented, no focal loss of strength or sensation Skin is without bruises or rashes Psychologically is without concerns for anxiety or depression. Discharge Data Allergies Allergy/AdvReac Type Severity Reaction Status Date / Time No Known Allergies Allergy Verified 09/11/19 08:27 Consultations 12/29/20 14:28 ED Decision to Admit Stat Hospital Course (1) COVID-19: COVID 19 pneumonia- acute hypoxic respiratory failure requiring supplemental oxygen. First symptoms on December 23 (/Sunday). 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 Got 3L IV fluids in the ED. - Cr improved (3) Diabetes mellitus, type 2: A1c was 7.1% this admission. - Continue home glargine 40 units SQ BID (4) HTN (hypertension): remains on metoprolol - resume arb 01/01 (5) Anemia: Microcytic anemia, due to iron deficiency with transferrin sat of 16% (normal range 20 - 50%). - Will defer iron infusion during acute infection. - Encourage good oral iron consumption. Outpatient follow-up with GI for iron deficiency work-up. (6) Anxiety: ? Bi-polar in history which patient is not sure of. He does note anxiety- had one episode in 2016 here for depression and mental health evaluation. - Continue Abilify 5 PO qam, Klonopin 0.5mg PO BID, Lexapro 10 mg PO Qam - temazepam hs (7) Sleep apnea: ZAFAR- on CPAP at home, patient is unsure of settings - believes he is at 10 cmH20. - Titrate to comfort and tolerance (8) Impingement syndrome of right shoulder: Managed with orthopaedics and steroid injection. - Tylenol PRN - Can do heat/ice therapy if desired (9) Obesity: BMI of 42.7. - No acute needs (10) DVT prophylaxis: xarelto given for home use DNR/DNI -> Patient confirmed he would not want intubation to admitting provider. Total Time Total Time Spent Total Time Spent (In Minutes): It required greater than 30 minutes to prepare this patient for discharge Discharge Plan Discharge Items Patient Disposition: Home - Self-Care Reason For Visit: COVID Discharge Diagnosis: covid pneumonia Activity: Per Instructions section Activity Comment: rest and recover Non-emergency contact: Primary Care Provider Call non-emergency contact if: your symptoms worsen and you have a fever Follow-up/Referrals: Huckestein,Jaren E, DO [Primary Care Provider] - Diet: Carb Consistent or DM2 Addtl Attending Provider Instructions: Wear your oxygen with exertion and sleeping. You may wear it at rest if you fe el short of breath. Please contact your family doctor for a least a telephone follow-up in 1 week. Please follow isolation instructions as below. If you continue to have fevers develop worsening shortness blood breath please return to our facility Covid test was positive on 29 December that means you should at least be in isolation until January 09. However on January 09 if you are still having symptoms of fever coughing or shortness of breath you should remain in isolation until you have 24 hours without the symptoms. Any questions please was referred to the website below or call your family doctor. You are given prescriptions for medications to prevent blood clots that may be encouraged by Covid and also to prevent the inflammation of Covid from worsening please complete these medications. Home Isolation COVID-19 Instructions The following information about Home Isolation is from the CDC Website: https://www.cdc.gov/coronavirus/2019-ncov/hcp/hmyfuqrp-jhcjpak-xahllk.html Stay home except to get medical care People who are mildly ill with COVID-19 are able to isolate at home during their illness. You should restrict activities outside your home, except for getting medical care. Do not go to work, school, or public areas. Avoid using public transportation, ride-sharing, or taxis. Separate yourself from other people and animals in your home People: As much as possible, you should stay in a specific room and away from other people in your home. Also, you should use a separate bathroom, if available. Animals: You should restrict contact with pets and other animals while you are sick with COVID-19, just like you would around other people. Although there have not been reports of pets or other animals becoming sick with COVID-19, it is still recommended that people sick with COVID-19 limit contact with animals until more information is known about the virus. When possible, have another member of your household care for your animals while you are sick. If you are sick with COVID-19, avoid contact with your pet, including petting, snuggling, being kissed or licked, and sharing food. If you must care for your pet or be around animals while you are sick, wash your hands before and after you interact with pets and wear a face mask. Call ahead before visiting your doctor If you have a medical appointment, call the healthcare provider and tell them that you have or may have COVID-19. This will help the healthcare providers office take steps to keep other people from getting infected or exposed. Wear a face mask You should wear a face mask when you are around other people (e.g., sharing a room or vehicle) or pets and before you enter a healthcare providers office. If you are not able to wear a face mask (for example, because it causes trouble breathing), then people who live with you should not stay in the same room with you, or they should wear a face mask if they enter your room. Cover your coughs and sneezes Cover your mouth and nose with a tissue when you cough or sneeze. Throw used ti ssues in a lined trash can. Immediately wash your hands with soap and water for at least 20 seconds or, if soap and water are not available, clean your hands with an alcohol-based hand engineering scientist that contains at least 60% alcohol. Clean your hands often Wash your hands often with soap and water for at least 20 seconds, especially after blowing your nose, coughing, or sneezing; going to the bathroom; and before eating or preparing food. If soap and water are not readily available, use an alcohol-based hand engineering scientist with at least 60% alcohol, covering all surfaces of your hands and rubbing them together until they feel dry. Soap and water are the best option if hands are visibly dirty. Avoid touching your eyes, nose, and mouth with unwashed hands. Avoid sharing personal household items You should not share dishes, drinking glasses, cups, eating utensils, towels, or bedding with other people or pets in your home. After using these items, they should be washed thoroughly with soap and water. Clean all high-touch surfaces everyday High touch surfaces include counters, tabletops, doorknobs, bathroom fixtures, toilets, phones, keyboards, tablets, and bedside tables. Also, clean any surfaces that may have blood, stool, or body fluids on them. Use a household cleaning spray or wipe, according to the label instructions. Labels contain instructions for safe and effective use of the cleaning product including precautions you should take when applying the product, such as wearing gloves and making sure you have good ventilation during use of the product. Monitor your symptoms Seek prompt medical attention if your illness is worsening (e.g., difficulty breathing).Beforeseeking care, call your healthcare provider and tell them that you have, or are being evaluated for, COVID-19. Put on a face mask before you enter the facility. These steps will help the healthcare providers office to keep other people in the office or waiting room from getting infected or exposed. Ask your healthcare provider to call the local or state health department. Persons who are placed under active monitoring or facilitated self- monitoring should follow instructions provided by their local health department or occupational health professionals, as appropriate. When working with your local health department check their available hours. If you have a medical emergency and need to call 911, notify the dispatch personnel that you have, or are being evaluated for COVID-19. If possible, put on a face mask before emergency medical services arrive. Discontinuing home isolation Patients with confirmed COVID-19 should remain under home isolation precautions until the risk of secondary transmission to others is thought to be low. The decision to discontinue home isolation precautions should be made on a [id number] basis, in consultation with healthcare providers and critical access hospital and [facility] health departments. Pending Studies at Discharge: No Stand-Alone Forms: My [facility] [employer], Smoking Cessation Medications and DC Order Prescriptions: New dexamethasone 6 mg tablet 6 mg PO DAILY Qty: 8 RF: 0 Xarelto 10 mg tablet 10 mg PO DAILY 35 Days Qty: 28 RF: 0 (DME) Oxygen Home Liters Per Minute 2 ea .Route DAILY Qty: 1 RF: 0 Continued atorvastatin [Lipitor] 40 mg Tablet 40 mg PO QPM RF: 0 metformin 500 mg Tablet 500 mg PO BID RF: 0 metoprolol succinate 50 mg Tablet Extended Release 24 Hr 50 mg PO QAM RF: 0 clonazepam [Klonopin] 0.5 mg Tablet 0.5 mg PO BID RF: 0 omeprazole 40 mg Capsule,Delayed Release(Dr/Ec) 40 mg PO QAM RF: 0 losartan 100 mg Tablet 100 mg PO QAM RF: 0 escitalopram oxalate [Lexapro] 10 mg Tablet 10 mg PO QAM RF: 0 aripiprazole [Abilify] 5 mg Tablet 5 mg PO QAM RF: 0 insulin aspart U-100 [Novolog U-100 Insulin aspart] 100 unit/mL Solution 1 sliding scale dose SUBCUT USEASDIRECTD RF: 0 Basaglar KwikPen U-100 Insulin 100 unit/mL (3 mL) Insulin Pen 40 unit SUBCUT BID RF: 0 temazepam 30 mg capsule 30 mg PO HS RF: 0 Discharge Orders: Discharge Order (Routine); Ordered 12/31/20 Ordered By: Navid Rascon/Other Patient Handouts: Managing Type 2 Diabetes, Managing Diabetes: The A1C Test Admission Data Admit Date/Time: 12/29/20 15:55 Attending Provider: Navid Aguilar Admit Provider: Symone Henley Primary Care Provider: Jaren Tan Other Providers: [place] Echevarria Coding Level of Care Code D/C Day Management >30 mins Diagnoses COVID-19 U07.1 URSZULA (acute kidney injury) N17.9 Diabetes mellitus, type 2 E11.9; Z79.4 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
== END 2020-12-31 18:01 | disposition home or self-care (01) | DRG 177 ==
LOC: ED 11:30 → 2S 15:55 → SUATTDRO 15:55 → 2S 16:55